=== PATIENT | female | born 1970 | race Caucasian/White ===

== ENCOUNTER 2016-12-29 11:10 | Outpatient (CLI) | payer BC ==
--- NOTE | 2016-12-29 14:28 | Mammography Report ---
Screening mammogram: This patient has a heterogeneously dense and diffusely distributed breast pattern of confluent patchy densities. There is no discrete mass and no architectural distortion identified. There is a biopsy marker in the upper outer left breast. Comparing the current study to those from 2014 and 2016 there are no significant changes identified and no suspicious findings. CAD used. Impression: Stable breast pattern. Recommendation: Annual mammogram followup. Due to the density and breast pattern correlation with palpation as well as periodic screening breast ultrasound would be prudent. BI-RADS CATEGORY: 1 = Negative ACR BI-RADS MAMMOGRAPHIC CODES: 0 = Needs additional imaging evaluation; 1 = Negative; 2 = Benign; 3 = Probably benign; 4 = Suspicious; 5 = Malignant; 6 = Known biopsy-proven malignancy COMMENT: 1. Dense breast tissue, i.e., adenosis, fibrocystic changes, etc., may obscure an underlying neoplasm. 2. Approximately 10% of cancers are not detected with mammography. 3. A negative mammography report should not delay biopsy if a clinically suspicious mass is present.
== END 2016-12-29 11:11 | disposition home or self-care (01) ==
LOC: MAMMO 11:10
PROVIDERS: ATTEND Family Medicine Adult Medicine
DX: Z12.31 Encounter for screening mammogram for malignant neoplasm of breast (principal)
CPT/HCPCS: 77067; G0202

== ENCOUNTER 2018-01-27 14:16 | Outpatient (CLI) | payer BC ==
--- NOTE | 2018-01-28 13:22 | Mammography Report ---
BILATERAL DIGITAL SCREENING MAMMOGRAM WITH CAD: 01/27/18 14:16:00 CLINICAL: Routine screening. COMPARISON:12/29/16 FINDINGS: The breasts are heterogeneously dense, which may obscure small masses. Left outer biopsy clip. A group of right outer calcifications and right asymmetries require additional imaging. The left breast is negative. IMPRESSION: Right calcifications and asymmetries requiring further workup. BI-RADS CATEGORY: 0 -- Additional Imaging Evaluation Required RECOMMENDATION: Recall for right lateralmedial and spot magnification CC and ML views and right breast ultrasound if needed. ACR BI-RADS MAMMOGRAPHIC CODES: 0 = Needs additional imaging evaluation; 1 = Negative; 2 = Benign; 3 = Probably benign; 4 = Suspicious; 5 = Malignant; 6 = Known biopsy-proven malignancy COMMENT: 1. Dense breast tissue, i.e., adenosis, fibrocystic changes, etc., may obscure an underlying neoplasm. 2. Approximately 10% of cancers are not detected with mammography. 3. A negative mammography report should not delay biopsy if a clinically suspicious mass is present. COMMENT: Patient follow-up letters are generated via our [employer] application.
== END 2018-01-27 14:17 | disposition home or self-care (01) ==
LOC: MAMMO 14:16
PROVIDERS: ATTEND Family Medicine
DX: Z12.31 Encounter for screening mammogram for malignant neoplasm of breast (principal)
CPT/HCPCS: 77067

== ENCOUNTER 2018-02-10 08:45 | Outpatient (CLI) | payer BC ==
--- NOTE | 2018-02-10 14:40 | Ultrasound Report ---
RIGHT DIGITAL DIAGNOSTIC MAMMOGRAM and RIGHT BREAST ULTRASOUND: 02/10/18 08:45:00 CLINICAL: Recall to evaluate an asymmetry and separate calcifications. COMPARISON:01/27/18 screening FINDINGS: Lateralmedial and spot magnification ML and CC views were performed. Satisfactory effacement of the previously described asymmetry on the spot views.A group of lower outer calcifications consists of at least five calcifications with varying morphology. The calcifications are more loosely clustered on the CC view. No associated mass or architectural distortion. Ultrasound of the right breast (including all four quadrants and the retroareolar area) was performed. A slightly irregular complex cyst at 1 o'clock 6 cm from the nipple measures 1.1 x 0.9 x 0.7 cm. An irregular anechoic cyst at 5 o'clock 4 cm from the nipple is relatively deep and measures approximately 1.0 x 0.7 x 0.6 cm. It has a mammographic correlate on the CC view of the mammogram. A benign cyst at 12 o'clock 3 cm from the nipple measures 5 x 4 x 6 mm. A benign cyst at 12 o'clock 4 cm from the nipple measures 8 x 9 x 4 mm. IMPRESSION: Probably benign lower outer calcifications, a probably benign complex cyst at 1 o'clock and a probably benign cyst at 5 o'clock. Recommend six month followup right mammogram to reevaluate the calcifications and a right breast ultrasound to reevaluate the complex cyst at 1 o'clock and probably benign cyst at 5 o'clock. BI-RADS CATEGORY: 3 - - Probably Benign ACR BI-RADS MAMMOGRAPHIC CODES: 0 = Needs additional imaging evaluation; 1 = Negative; 2 = Benign; 3 = Probably benign; 4 = Suspicious; 5 = Malignant; 6 = Known biopsy-proven malignancy COMMENT: 1. Dense breast tissue, i.e., adenosis, fibrocystic changes, etc., may obscure an underlying neoplasm. 2. Approximately 10% of cancers are not detected with mammography. 3. A negative mammography report should not delay biopsy if a clinically suspicious mass is present. COMMENT: Patient follow-up letters are generated via our [employer] application.
== END 2018-02-10 08:46 | disposition home or self-care (01) ==
LOC: MAMMO 08:45
PROVIDERS: ATTEND Family Medicine
DX: N60.01 Solitary cyst of right breast (principal); N60.02 Solitary cyst of left breast; R92.1 Mammographic calcification found on diagnostic imaging of breast

== ENCOUNTER 2018-08-15 09:35 | Outpatient (CLI) | payer BC ==
--- NOTE | 2018-08-15 11:08 | Mammography Report ---
The right mammogram and right breast ultrasound: Short-term followup for calcifications and complex right cysts. Magnification CC and lateral views again demonstrates a small clustering of probably benign right breast calcifications in the inferolateral breast. These have shown no change since prior examination. Ultrasound of 2 hypoechoic masses in the one and 12:00 locations are also performed. The 12:00 location mass is elongated and somewhat bilobed measuring 1.1 cm. There are several small fine internal echoes. The 1:00 lesion measures 1 cm and has similar characteristics. The echoes are slightly more prominent on the current examination due to the difference in technique however when the technique more comparable findings appear to be generally stable. Impressions: 1. Stable probably benign right breast calcifications. 2. Probable benign right breast cyst. Recommendation: 1. Reevaluate microcalcifications during annual screening mammogram in 6 months. 2. Probably benign right breast cysts. Consider ultrasound aspiration of both lesions to confirm them as simple cysts so that additional followup will longer be necessary. Otherwise reevaluate during annual mammography. BI-RADS CATEGORY: 3 = Probably benign ACR BI-RADS MAMMOGRAPHIC CODES: 0 = Needs additional imaging evaluation; 1 = Negative; 2 = Benign; 3 = Probably benign; 4 = Suspicious; 5 = Malignant; 6 = Known biopsy-proven malignancy COMMENT: 1. Dense breast tissue, i.e., adenosis, fibrocystic changes, etc., may obscure an underlying neoplasm. 2. Approximately 10% of cancers are not detected with mammography. 3. A negative mammography report should not delay biopsy if a clinically suspicious mass is present.
== END 2018-08-15 09:36 | disposition home or self-care (01) ==
LOC: MAMMO 09:35
PROVIDERS: ATTEND Family Medicine
DX: R92.8 Other abnormal and inconclusive findings on diagnostic imaging of breast (principal)

== ENCOUNTER 2019-01-30 07:03 | Outpatient (CLI) | payer BC ==
--- NOTE | 2019-01-30 09:55 | Ultrasound Report ---
BILATERAL DIGITAL DIAGNOSTIC MAMMOGRAM with CAD and RIGHT BREAST ULTRASOUND: 01/30/19 CLINICAL: Followup right calcifications and right complex cysts. COMPARISON:08/15/18 and 02/10/18 FINDINGS: The breasts are heterogeneously dense, which may obscure small masses. The previously identified clustered right lower outer calcifications have benign morphology and are unchanged since 02/10/18.No mass, architectural distortion or suspicious calcifications . Ultrasound of the right breast demonstrated an irregular shaped cyst at 12 o'clock 4 cm from the nipple measuring 1.5 x 1.0 x 0.7 cm. Is not significantly changed compared to the last exam. An irregular cyst at 1 o'clock 6 cm from the nipple measures 1.2 x 0.8 x 1.3 cm compared to 1.1 x 1.0 x 0.8 cm on the last exam. An oval cyst at 5 o'clock 6 cm from nipple measures 1.1 x 0.8 x 0.7 cm compared to 1.2 x 1.1 x 0.4 cm on the last exam. No solid mass or shadowing. IMPRESSION: Benign right calcifications and benign right breast cysts. BI-RADS CATEGORY: 2 -- Benign RECOMMENDATION: Return to routine mammographic screening in one year. ACR BI-RADS MAMMOGRAPHIC CODES: 0 = Needs additional imaging evaluation; 1 = Negative; 2 = Benign; 3 = Probably benign; 4 = Suspicious; 5 = Malignant; 6 = Known biopsy-proven malignancy COMMENT: 1. Dense breast tissue, i.e., adenosis, fibrocystic changes, etc., may obscure an underlying neoplasm. 2. Approximately 10% of cancers are not detected with mammography. 3. A negative mammography report should not delay biopsy if a clinically suspicious mass is present. COMMENT: Patient follow-up letters are generated by our [employer] application.
== END 2019-01-30 07:04 | disposition home or self-care (01) ==
LOC: MAMMO 07:03
PROVIDERS: ATTEND Family Medicine
DX: N60.01 Solitary cyst of right breast (principal); R92.1 Mammographic calcification found on diagnostic imaging of breast
CPT/HCPCS: 77066; 77067

== ENCOUNTER 2020-02-01 07:21 | Outpatient (CLI) | payer BC ==
--- NOTE | 2020-02-01 08:13 | Mammography Report ---
BILATERAL DIGITAL SCREENING MAMMOGRAM WITH CAD INDICATION: Routine screening mammography. TECHNIQUE: Digital bilateral 2D mammography was obtained in the craniocaudal and mediolateral obliq ue projections. This examination was interpreted with the benefit of Computer-Aided Detection analysi s. COMPARISON: 01/30/2019, 08/15/2018, 02/10/2018, 01/27/2018, 12/29/2016, 12/26/2015. FINDINGS: Breast Density: The breasts are heterogeneously dense, which may obscure small masses. No suspicious mass, microcalcifications, or architectural distortion. Stable benign-appearing scatter ed calcifications in both breasts. A few circumscribed and obscured oval lesions within both breasts show fluctuating size over prior exams and are most consistent with cysts. Of note, cysts have been n oted previously on prior ultrasound. IMPRESSION: No evidence of breast malignancy. Recommend routine screening mammogram in one year. BI-RADS Category 2: Benign. No mammographic evidence of malignancy. Recommend routine screening ma mmography in one year. A "normal" or negative report should not discourage follow up or biopsy of a clinically significant f inding. A written summary of these findings will be mailed to the patient. The patient will be entered into a mammography reporting system which will generate a reminder letter for the patient's next appointmen t at the appropriate interval. The [employer] recommends yearly mammograms starting at age 40 and continuing as l laura as a woman is in good health. Breast MRI is recommended for women with an approximate 20-25% or greater lifetime risk of breast cancer, including women with a strong family history of breast or ova raya cancer or who have been treated for Hodgkin's disease. Signer Name: Roderick Mtz MD Signed: 02/01/2020 8:09 AM Workstation Name: [id number]
== END 2020-02-01 07:22 | disposition home or self-care (01) ==
LOC: MAMMO 07:21
PROVIDERS: ATTEND Family Medicine
DX: Z12.31 Encounter for screening mammogram for malignant neoplasm of breast (principal)
CPT/HCPCS: 77067

== ENCOUNTER 2021-02-13 07:29 | Outpatient (CLI) | payer BC ==
--- NOTE | 2021-02-13 08:25 | Mammography Report ---
DIGITAL SCREENING MAMMOGRAM WITH CAD, 02/13/2021 CLINICAL INFORMATION / INDICATION: Routine screening TECHNIQUE: Digital bilateral 2D mammography was obtained in the craniocaudal and mediolateral obliqu e projections. This examination was interpreted with the benefit of Computer-Aided Detection analysis . COMPARISON: 02/01/2020 and multiple priors FINDINGS: Breast Density: The breasts are heterogeneously dense, which may obscure small masses. No dominant mass, suspicious calcifications, or architectural distortion in the left breast. In the right lateral posterior right breast on cc view only, 4 cm lateral to the midline plain, a 16 mm rounded density is new. IMPRESSION: Possible new density on the right Follow up recommendation: Right spot compression views and ultrasound if needed BI-RADS Category 0: Incomplete. Needs additional imaging evaluation and/or prior mammograms for mendoza calderon. A "normal" or negative report should not discourage follow up or biopsy of a clinically significant f inding. A written summary of these findings will be mailed to the patient. The patient will be entered into a mammography reporting system which will generate a reminder letter for the patient's next appointmen t at the appropriate interval. The [employer] recommends yearly mammograms starting at age 40 and continuing as l laura as a woman is in good health. Breast MRI is recommended for women with an approximate 20-25% or greater lifetime risk of breast cancer, including women with a strong family history of breast or ova raya cancer or who have been treated for Hodgkin's disease. Signer Name: Missael Borrero MD Signed: 02/13/2021 8:21 AM Workstation Name: [id number]
== END 2021-02-13 07:30 | disposition home or self-care (01) ==
LOC: MAMMO 07:29
PROVIDERS: ATTEND Family Medicine
DX: Z12.31 Encounter for screening mammogram for malignant neoplasm of breast (principal); N64.89 Other specified disorders of breast
CPT/HCPCS: 77067

== ENCOUNTER 2021-02-25 09:21 | Outpatient (CLI) | payer BC ==
--- NOTE | 2021-02-25 12:20 | Ultrasound Report ---
RIGHT DIGITAL DIAGNOSTIC MAMMOGRAM WITH CAD CONVENTIONAL, 02/25/2021 RIGHT LIMITED BREAST ULTRASOUND CLINICAL INFORMATION / INDICATION: ABNORMAL MAMMOGRAM TECHNIQUE: Digital right mammographic imaging was performed. Spot compression views were obtained. Li mited ultrasound was performed. This examination was interpreted with the benefit of Computer-Aided D etection (CAD) analysis. COMPARISON: Bilateral mammography 02/13/21. FINDINGS: Breast Density: The breasts are extremely dense, which lowers the sensitivity of mammography. MAMMOGRAPHIC FINDINGS: There is a persistent 1.6 cm rounded ovoid nodule in the right lateral breast at approximately 9-10 o'clock. ULTRASOUND FINDINGS: Targeted ultrasound evaluation was performed of the area of interest. There is a 1.6 cm ovoid simple cyst at the 10:00 position 6 cm from the nipple which corresponds to the site of the mammographically detected nodule. There are a couple of small incidental benign intramammary l ymph nodes at the 9:00 position, the largest of which measures 4 mm short axis. IMPRESSION: 1.6 cm simple cyst in the right lateral breast corresponds to the mammographic finding. N o mammographic or sonographic evidence of malignancy. Follow up recommendation: Routine yearly BI-RADS Category 2: Benign. A "normal" or negative report should not discourage follow up or biopsy of a clinically significant f inding. A written summary of these findings will be mailed to the patient. The patient will be entered into a mammography reporting system which will generate a reminder letter for the patient's next appointmen t at the appropriate interval. According to the [employer], yearly mammograms are recommended starting at age 40 and continuing as long as a woman is in good health. Breast MRI is recommended for women with an danay roximately 20-25% or greater lifetime risk of breast cancer, including women with a strong family his tory of breast or ovarian cancer and women who have been treated for Hodgkin's disease. Signer Name: Rob Murray MD Signed: 02/25/2021 12:16 PM Workstation Name: [id number]
== END 2021-02-25 09:22 | disposition home or self-care (01) ==
LOC: MAMMO 09:21
PROVIDERS: ATTEND Family Medicine
DX: N60.01 Solitary cyst of right breast (principal); N63.11 Unspecified lump in the right breast, upper outer quadrant